=== PATIENT | male | born 1950 | race Caucasian/White ===

== ENCOUNTER → 2016-10-26 | Outpatient (CLI) | payer OTHER ==
[~2016-10-26] MED LIST: ASPIRIN EC81 MG PO; CALTRATE-600 W600 MG PO; CELEBREX100 MG PO; CIPRO DPS500 MG PO; CLARITIN10 M2 PO; COLACE-DPS100 MG PO; CULTURELLE1 CAP PO; EFFEXOR XR DPS150 MG PO; FISH OIL 1,2001 EAC1 PO; MEN'S ONE DAIL1 EACH PO; NORCO 5-325 TA1 EACH PO; OMEGA-3 DPS1000 MG PO; OMNICEF DPS300 MG PO; PRESERVISION A1 EAC1 PO; REFRESH TEARS15 ML OU; VITAMIN B-121000 MCG PO; VITAMIN D31000 UNI1 PO
== END | disposition home or self-care (01) ==
LOC: RAD.S 12:57
PROC: 3E0S33Z Introduction of Anti-inflammatory into Epidural Space, Percutaneous Approach (ICD-10-PCS; principal; 2016-10-26)
DX: M54.5 Low back pain (principal); M54.10 Radiculopathy, site unspecified; M51.16 Intervertebral disc disorders with radiculopathy, lumbar region